=== PATIENT | male | born 1980 | race Caucasian/White ===

== ENCOUNTER 2019-05-13 21:23 | Emergency (ER) | payer SELFPAY ==
[~2019-05-13] VITALS: Ht 160 cm; Wt 79.8 kg
[2019-05-13 21:40] VITALS: Ht 160 cm; Wt 79.8 kg
[2019-05-14 00:26] VITALS: BP 146/93
== END 2019-05-14 00:26 | disposition home or self-care (01) ==
LOC: ED 21:23
DX: S60.551A Superficial foreign body of right hand, initial encounter (principal); X58.XXXA Exposure to other specified factors, initial encounter; Y93.89 Activity, other specified; Y92.89 Other specified places as the place of occurrence of the external cause; Y99.8 Other external cause status
CPT/HCPCS: 90715